=== PATIENT | male | born 1975 | race Caucasian/White ===

== ENCOUNTER 2016-08-18 03:05 | Emergency (ER) | payer OTHER ==
[~2016-08-18] VITALS: Ht 170.2 cm; Wt 90.7 kg
[2016-08-18 03:21] VITALS: BP 141/86
--- NOTE | 2016-08-18 03:25 | NUR ---
41 Y/O M W/C/O REDNESS AND PAIN TO L LOWER LEG X 2 DAYS. PT STATES FEELS SOB WHITH AMBULATION. EXTREMITY RED AROUND CALF, WARM TO TOUCH AND SLIGTLY SWOLLEN. DENIES ANY SOB AT THE MOMENT. O2 98% IN RA. ER MADE AWARE.
[2016-08-18] MEDS ORDERED: CLINDAMYCIN 600 MG/4 ML VIAL IM ONE (04:05)
[2016-08-18] MEDS ORDERED: HYDROcodone/APAP 5/325 MG 1 TAB TAB PO ONE (04:05)
[2016-08-18 04:18] LABS: BASOPHILS # (AUTO) 0.1 K/uL (0.00-0.22); BASOPHILS % (AUTO) 0.9 % (0.0-2.0); EOSINOPHILS # (AUTO) 0.7 K/uL (0-0.4); HEMATOCRIT 42.1 % (36-52); HEMOGLOBIN 14.1 g/dL (12.0-18.0); LYMPHOCYTES # (AUTO) 1.9 K/uL (2.0-11.5); LYMPHOCYTES % (AUTO) 13.9 % (20.5-51.1); MEAN CORPUSCULAR HEMOGLOBIN 30 pg (27-31); MEAN CORPUSCULAR HGB CONC 34 g/dL (33-37); MEAN CORPUSCULAR VOLUME 91 fL (80-94); MONOCYTES # (AUTO) 1.1 K/uL (0.8-1.0); MONOCYTES % (AUTO) 8.1 % (1.7-9.3); NEUTROPHILS % (AUTO) 72.1 % (42.2-75.2); PLATELET COUNT (AUTO) 294 K/uL (140-450); RED BLOOD CELL COUNT(AUTO) 4.64 MIL/uL (4.20-6.10); WHITE BLOOD COUNT (AUTO) 13.8 K/uL (4.8-10.8)
[2016-08-18 04:28] LABS: ANION GAP 10.6 (8-16); CALCIUM 8.8 mg/dL (8.5-10.1); CARBON DIOXIDE 29.2 mmol/L (21-32); CREATININE 0.9 mg/dL (0.6-1.3); POTASSIUM 3.8 mmol/L (3.5-5.1)
--- NOTE | 2016-08-18 04:30 | NUR ---
ULTRASOUND AT BEDSIDE. NO S/S OF DISTRESS NOTED AT THIS POINT.
[2016-08-18 04:58] VITALS: BP 145/72
--- NOTE | 2016-08-18 04:58 | NUR ---
Patient discharged with v/s stable. Written and verbal after care instructions given and explained. Patient alert, oriented and verbalized understanding of instructions. Ambulatory with steady gait. All questions addressed prior to discharge. ID band removed. Patient advised to follow up with PMD TOMORROW OR RETURN TO ER IF CONDITION WORSENS. Rx of DOXYCYCLINE, TYLENOL, AND NAPROSYN given. Patient educated on indication of medication including possible reaction and side effects. Opportunity to ask questions provided and answered.
== END 2016-08-18 04:58 | disposition home or self-care (01) ==
LOC: MED 03:05
DX: L03.116 Cellulitis of left lower limb (principal)
CPT/HCPCS: 36415; 80048; 85025; 93971; 96372; 99285; J3490; Q0092

== ENCOUNTER 2022-02-03 01:35 | Emergency (ER) | payer SELFPAY ==
[~2022-02-03] VITALS: Ht 170.2 cm; Wt 90.7 kg
[2022-02-03 01:40] VITALS: BP 114/65
[2022-02-03 01:55] LABS: BASOPHILS # (AUTO) 0.1 K/uL (0.00-0.22); BASOPHILS % (AUTO) 0.7 % (0.0-2.0); EOSINOPHILS # (AUTO) 0.5 K/uL (0-0.4); EOSINOPHILS % (AUTO) 4.6 % (0.0-4.0); HEMATOCRIT 37.2 % (36-52); HEMOGLOBIN 12.5 g/dL (12.0-18.0); LYMPHOCYTES # (AUTO) 2.7 K/uL (2.0-11.5); LYMPHOCYTES % (AUTO) 24.5 % (20.5-51.1); MEAN CORPUSCULAR HEMOGLOBIN 32 pg (27-31); MEAN CORPUSCULAR HGB CONC 34 g/dL (33-37); MEAN CORPUSCULAR VOLUME 93.7 fL (80-94); MONOCYTES # (AUTO) 1.5 K/uL (0.8-1.0); MONOCYTES % (AUTO) 13.4 % (1.7-9.3); NEUTROPHILS # (AUTO) 6.2 K/uL (1.8-7.7); NEUTROPHILS % (AUTO) 56.8 % (42.2-75.2); PLATELET COUNT (AUTO) 271 K/uL (140-450); RED BLOOD CELL COUNT(AUTO) 3.97 MIL/uL (4.20-6.10); RED CELL DISTRIBUTION WIDTH 13.3 % (11.6-13.7); WHITE BLOOD COUNT (AUTO) 10.9 K/uL (4.8-10.8)
[2022-02-03 02:17] LABS: ALBUMIN 2.7 g/dL (3.4-5.0); CARBON DIOXIDE 26.5 mmol/L (21-32); CREATININE 1.1 mg/dL (0.6-1.3); POTASSIUM 3.5 mmol/L (3.5-5.1); TOTAL BILIRUBIN 0.3 mg/dL (0.0-1.0)
--- NOTE | 2022-02-03 02:41 | NUR ---
Patient reported, can not provide urine sample this time.
--- NOTE | 2022-02-03 02:41 | NUR ---
Patient ambulated to bed 12.
--- NOTE | 2022-02-03 03:19 | NUR ---
Dr. Martin examining patient.
[2022-02-03] MEDS ORDERED: KETOROLAC 15 MG/ML VIAL IVP ONE (04:25)
--- NOTE | 2022-02-03 05:03 | NUR ---
taken to CT via w/c
[2022-02-03 05:13] LABS: APPEARANCE,URINE CLEAR (CLEAR); BILIRUBIN,URINE NEGATIVE (NEGATIVE); BLOOD, URINE 3+ (NEGATIVE); COLOR,URINE YELLOW (YELLOW); LEUKOCYTE ESTERASE ,URINE NEGATIVE (NEGATIVE); NITRITE, URINE NEGATIVE (NEGATIVE); UGLUCOSE NEGATIVE (NEGATIVE)
[2022-02-03 05:29] LABS: RBC,URINE TOO NUMEROUS TO COUN /HPF (0-5); WBC,URINE 0-5 /HPF (0-5)
[2022-02-03 06:06] VITALS: BP 121/71
[2022-02-03] MEDS ORDERED: TAMS0.4C96 PO (06:48)
[2022-02-03] MEDS ORDERED: IBUP-2213 PO (06:48)
[2022-02-03] MEDS ORDERED: ACET-5629 PO (06:48)
[2022-02-03] MEDS ORDERED: ONDA-188 PO (06:48)
--- NOTE | 2022-02-03 07:12 | NUR ---
d/c with VSS> d/c education given. opportunity to ask questions given and answered. rx of flomax, zofran, motrin and percocet given. IV site removed, bleeding controlled with sterile gauze and reinforced with tape.
== END 2022-02-03 07:13 | disposition home or self-care (01) ==
LOC: MED 01:35
DX: N20.0 Calculus of kidney (principal); Z79.899 Other long term (current) drug therapy; Z79.1 Long term (current) use of non-steroidal anti-inflammatories (NSAID); Z79.891 Long term (current) use of opiate analgesic
CPT/HCPCS: 36415; 74177; 80053; 81001; 85025; 96374; 99285; J1885; Q9967

== ENCOUNTER 2022-07-22 06:05 | Emergency (ER) | payer OTHER ==
[~2022-07-22] VITALS: Ht 170.2 cm; Wt 81.6 kg
[~2022-07-22 06:05] MED LIST: ACET-5629 PO; IBUP-2213 PO; ONDA-188 PO; TAMS0.4C96 PO
--- NOTE | 2022-07-22 06:12 | NUR ---
PT MINDA BLS. TAKEN TO BED 6
[2022-07-22 06:13] VITALS: BP 126/83
[2022-07-22] MEDS ORDERED: NACL 0.9% 1,000 ML IV ONE (06:20)
--- NOTE | 2022-07-22 06:28 | NUR ---
PT TAKEN TO RADIOLOGY
--- NOTE | 2022-07-22 06:45 | NUR ---
pt resting in room, stated pain is at a 4/10.
--- NOTE | 2022-07-22 06:46 | NUR ---
47 Y/O M from home presents with L flank pain x1 day sharp 12/17. No NVD, skin intact, a&ox4. pt stated he was seen for kidney stones no surgery but medication prescribed. pmh-kidney stones nka
--- NOTE | 2022-07-22 07:30 | NUR ---
Pt report given to Christina WILHELM. Transfer of care at this time.
--- NOTE | 2022-07-22 08:15 | NUR ---
DR DAO AT BEDSIDE.
[2022-07-22] MEDS ORDERED: AMOX-999 PO (08:17)
[2022-07-22 08:18] LABS: BASOPHILS # (AUTO) 0.1 K/uL (0.00-0.22); BASOPHILS % (AUTO) 0.4 % (0.0-2.0); EOSINOPHILS # (AUTO) 0.3 K/uL (0-0.4); EOSINOPHILS % (AUTO) 1.5 % (0.0-4.0); HEMATOCRIT 29.2 % (36-52); HEMOGLOBIN 9.8 g/dL (12.0-18.0); LYMPHOCYTES # (AUTO) 2.4 K/uL (2.0-11.5); LYMPHOCYTES % (AUTO) 12.9 % (20.5-51.1); MEAN CORPUSCULAR HEMOGLOBIN 32 pg (27-31); MEAN CORPUSCULAR HGB CONC 33 g/dL (33-37); MEAN CORPUSCULAR VOLUME 95.7 fL (80-94); MONOCYTES # (AUTO) 1.9 K/uL (0.8-1.0); MONOCYTES % (AUTO) 10.7 % (1.7-9.3); NEUTROPHILS # (AUTO) 13.6 K/uL (1.8-7.7); NEUTROPHILS % (AUTO) 74.5 % (42.2-75.2); PLATELET COUNT (AUTO) 679 K/uL (140-450); RED BLOOD CELL COUNT(AUTO) 3.05 MIL/uL (4.20-6.10); WHITE BLOOD COUNT (AUTO) 18.3 K/uL (4.8-10.8)
[2022-07-22] MEDS ORDERED: TAMS0.4C96 PO (08:18)
[2022-07-22 08:25] VITALS: BP 126/84
[2022-07-22 08:34] LABS: ALBUMIN 2.2 g/dL (3.4-5.0); ANION GAP 8.4 (8-16); CARBON DIOXIDE 24.4 mmol/L (21-32); CREATININE 0.9 mg/dL (0.6-1.3); POTASSIUM 3.8 mmol/L (3.5-5.1); TOTAL BILIRUBIN 0.4 mg/dL (0.0-1.0)
--- NOTE | 2022-07-22 09:01 | NUR ---
Patient does not wish to proceed with medical care recommended by DR DAO. Patient given information related to possible complications, up to and including , which could occur as a result of leaving hospital at this time. Patient verbalizes understanding of risks involved leaving against medical advice. Patient has signed AMA form. Addendum: 07/22/22 at 0924 by [email or web address] PT SEND HOME WITH AN RX OF AMOXICILLIN/POTASSIUM CLAV, TAMSULOSIN HCI. IV REMOVED.
--- NOTE | 2022-07-22 09:01 | NUR ---
Patient discharged with v/s stable. Written and verbal after care instructions given and explained. Patient alert, oriented and verbalized understanding of instructions. Ambulatory with steady gait. All questions addressed prior to discharge. ID band removed. Patient advised to follow up with PMD. Rx of AMOXICILLIN/POTASSIUM CLAV, TAMSULOSIN HCI given. Opportunity to ask questions provided and answered.
== END 2022-07-22 09:01 | disposition home or self-care (01) ==
LOC: MED 06:05
DX: N20.0 Calculus of kidney (principal); J18.9 Pneumonia, unspecified organism; Z79.899 Other long term (current) drug therapy
CPT/HCPCS: 36415; 80053; 83690; 85025; 96360; 99284

== ENCOUNTER 2022-07-22 16:13 | Emergency (ER) | payer OTHER ==
[~2022-07-22] VITALS: Ht 170.2 cm; Wt 92.1 kg
[~2022-07-22 16:13] MED LIST changes: +AMOX-999 PO
[2022-07-22 16:25] VITALS: BP 124/88
--- NOTE | 2022-07-22 21:26 | NUR ---
PER PT CALLED NO ANSWER, LWBS
== END 2022-07-22 21:26 | disposition left against medical advice (07) ==
LOC: MED 16:13
DX: M54.50 Low back pain, unspecified (principal); Z53.21 Procedure and treatment not carried out due to patient leaving prior to being seen by health care provider
CPT/HCPCS: 99281

== ENCOUNTER 2023-09-19 20:58 | Emergency (ER) | payer OTHER ==
[~2023-09-19] VITALS: Ht 170.2 cm; Wt 90.7 kg
[2023-09-19 21:14] VITALS: BP 122/80; PULSE 90; RESP 18; TEMP 98.2; O2SAT 98
== END 2023-09-19 22:55 | disposition left against medical advice (07) ==
LOC: MED 20:58
DX: S39.012A Strain of muscle, fascia and tendon of lower back, initial encounter (principal); R03.0 Elevated blood-pressure reading, without diagnosis of hypertension; Z79.1 Long term (current) use of non-steroidal anti-inflammatories (NSAID); Z79.2 Long term (current) use of antibiotics; Z79.899 Other long term (current) drug therapy; X58.XXXA Exposure to other specified factors, initial encounter; Y93.89 Activity, other specified; Y92.89 Other specified places as the place of occurrence of the external cause; Y99.8 Other external cause status
CPT/HCPCS: 99281